=== PATIENT | female | born 1990 | race Two or more races ===

== ENCOUNTER 2022-08-12 22:17 | Inpatient (IN) | payer SELFPAY ==
[~2022-08-12] VITALS: Ht 162.6 cm; Wt 87.5 kg
[2022-08-12] MEDS ORDERED: DOCU-94 PO (22:36)
[2022-08-12] MEDS ORDERED: PREN-96 PO (22:37)
== END 2022-08-13 01:10 | disposition home or self-care (01) | DRG 833 ==
LOC: LDRP 22:17
PROVIDERS: ADMIT Obstetrics & Gynecology; ATTEND Obstetrics & Gynecology
DX: O26.93 Pregnancy related conditions, unspecified, third trimester (principal); Z3A.36 36 weeks gestation of pregnancy
CPT/HCPCS: 59025; 76818; 81002; 94760; G0378

== ENCOUNTER 2022-08-27 11:51 | Inpatient (IN) | payer BC ==
[~2022-08-27] VITALS: Ht 162.6 cm; Wt 88.5 kg
[~2022-08-27 11:51] MED LIST: DOCU-94 PO; PREN-96 PO
[2022-08-27 14:08] LABS: Basophils # (auto) 0 10 ^3/uL (0-0.2); Basophils % (auto) 0.3 % (0.0-2.0); Eosinophils # (auto) 0 10 ^3/uL (0-0.8); Eosinophils % (auto) 0.4 % (0.0-7.0); Hematocrit 38.4 % (36.0-46.0); Hemoglobin 12.9 g/dL (12.2-16.2); Lymphocytes # (auto) 1.6 10 ^3/uL (0.4-5.4); Lymphocytes % (auto) 25.4 % (10.0-50.0); Mean Corpuscular Hemoglobin 29.4 pg (28.0-32.0); Mean Corpuscular Hgb Conc. 33.6 g/dL (32.0-36.0); Mean Corpuscular Volume 87.4 fL (80.0-100.0); Monocytes # (auto) 0.4 10 ^3/uL (0-1.3); Monocytes % (auto) 6.8 % (0.0-12.0); Neutrophils # (auto) 4.3 10 ^3/uL (1.6-8.6); Neutrophils % (auto) 67.1 % (37.0-80.0); Red Blood Cells 4.39 10^6/uL (4.0-5.20); Red Cell Distribution Width 13.9 % (11.8-14.3); White Blood Cell 6.4 10^3/uL (4.4-10.8)
[2022-08-27 14:31] LABS: Urine Bacteria MANY /hpf (None Seen); Urine Blood Negative /uL (Negative); Urine Mucus FEW (None Seen); Urine Specific Gravity 1.019 (1.001-1.035); Urine WBC 7 /hpf (0 - 5)
[2022-08-27 14:34] LABS: INR 0.87 (0.9-1.15); Partial Thromboplastin Time 29.2 sec (24.6-33.4)
[2022-08-27 14:52] LABS: BUN/Creatinine Ratio 16.9; Calcium 7.8 mg/dL (8.5-10.1); Potassium 3.5 mmol/L (3.5-5.1)
[2022-08-27 14:54] LABS: Bilirubin, Total 0.4 mg/dL (0.2-1.0)
[2022-08-27] MEDS ORDERED: PROMETHAZINE HCL 25 MG/ML 1ML IM PRN (15:30)
[2022-08-27] MEDS ORDERED: PHISODERM TOP SOLN 240ML BTL TOP PRN (15:30)
[2022-08-27] MEDS ORDERED: BUTORPHANOL TARTRATE 2 MG/1 ML VIAL IV PRN ×2 (15:30)
[2022-08-27] MEDS ORDERED: LIDOCAINE 2%HCL (LOCAL ANESTH.) INJ 20ML MDV IJ PRN (15:30)
[2022-08-27] MEDS ORDERED: LACTATED RINGER'S 1,000 ML IV SCH (15:30)
[2022-08-27] MEDS ORDERED: LACT. RINGERS/OXYTOCIN 20UNITS 500 ML IV ONE ×2 (16:00→16:30)
[2022-08-27] MEDS: miSOPROStol 50 MCG per PRE-CUT 1/2 TAB PO PRN ×2 (16:11→20:13)
[2022-08-27 16:53] LABS: Uric Acid 9.2 mg/dL (2.6-6.0)
[2022-08-27] MEDS: WITCH HAZEL-GLYCERIN PAD TOP PRN (17:54)
[2022-08-27] MEDS: DERMOPLAST 60ML BOTTLE TOP PRN (17:54)
[2022-08-27] MEDS ORDERED: hydrALAZINE HCL 20 MG/ML VL IV PRN (19:15)
[2022-08-27] MEDS: LABETALOL HCL 200 MG TAB PO SCH (19:23)
[2022-08-28] VITALS (11 sets, daily range): BP systolic 133–158; BP diastolic 73–92
[2022-08-28] MEDS: miSOPROStol 50 MCG per PRE-CUT 1/2 TAB PO PRN ×2 (00:16→04:48)
[2022-08-28] MEDS ORDERED: LACTATED RINGER'S 1,000 ML IV SCH (05:45)
[2022-08-28] MEDS ORDERED: MAGNESIUM SULFATE 100 ML IV ONE ×2 (05:45→05:47)
[2022-08-28] MEDS ORDERED: LORazepam 2MG/ML-1ML VIAL IV ONE ×2 (05:45→16:00)
[2022-08-28] MEDS ORDERED: MAGNESIUM SULFATE 40MG/ML 1,000 ML IV SCH ×2 (05:45→15:45)
[2022-08-28] MEDS: LABETALOL HCL 200 MG TAB PO SCH ×2 (06:42→18:34)
[2022-08-28] MEDS ORDERED: LACTATED RINGER'S 500 ML IV ONE (07:15)
[2022-08-28] MEDS ORDERED: LIDOCAINE HCL 2 %PF INJ 10ML AMP IJ ONE (07:15)
[2022-08-28] MEDS ORDERED: ePHEDrine SULFATE 50 MG/ML AMP IV ONE (07:15)
[2022-08-28] MEDS ORDERED: ROPIVACAINE HCL 200 ML EPI SCH (07:15)
[2022-08-28] MEDS ORDERED: miSOPROStol 100 mcg TAB SL PRN (09:45)
[2022-08-28] MEDS ORDERED: IBUPROFEN 600 MG TAB PO PRN (11:15)
[2022-08-28] MEDS: DERMOPLAST 60ML BOTTLE TOP PRN (17:23)
[2022-08-28] MEDS: WITCH HAZEL-GLYCERIN PAD TOP PRN (17:23)
[2022-08-28 18:23] LABS: Protein, Urine 87.5 mg/dL (0.0-11.9)
[2022-08-28] MEDS: DOCUSATE SOD 100 MG CAP PO SCH (22:20)
[2022-08-28] MEDS: IBUPROFEN 800 MG TAB PO PRN (22:21)
[2022-08-29 03:00] VITALS: BP 139/79
[2022-08-29] MEDS: ACETAMINOPHEN 325 MG TAB PO PRN ×3 (05:46→22:20)
[2022-08-29 06:30] VITALS: BP 131/84
[2022-08-29] MEDS ORDERED: MAGNESIUM SULFATE 40MG/ML 1,000 ML IV SCH (07:00)
[2022-08-29 07:06] LABS: RPR Non Reactive (Non Reactive)
[2022-08-29] MEDS: IBUPROFEN 800 MG TAB PO PRN ×2 (07:10→15:27)
[2022-08-29] MEDS: LABETALOL HCL 200 MG TAB PO SCH ×2 (07:13→19:00)
[2022-08-29 11:00] VITALS: BP 144/93
[2022-08-29 15:00] VITALS: BP 144/83
[2022-08-29 19:00] VITALS: BP 143/89
[2022-08-29] MEDS: DOCUSATE SOD 100 MG CAP PO SCH (22:20)
[2022-08-29 23:00] VITALS: BP 136/69
[2022-08-30] MEDS: IBUPROFEN 800 MG TAB PO PRN (01:16)
[2022-08-30 03:00] VITALS: BP 138/73
[2022-08-30] MEDS: LABETALOL HCL 200 MG TAB PO SCH (06:47)
[2022-08-30 06:50] VITALS: BP 164/89
[2022-08-30] MEDS ORDERED: LABE100T4 PO (07:26)
== END 2022-08-30 10:05 | disposition home or self-care (01) | DRG 807 ==
LOC: LDRP 11:51 → OBSVTOIN 14:30 → LDRP 14:36
PROVIDERS: ADMIT Obstetrics & Gynecology; ATTEND Obstetrics & Gynecology
PROC: 10E0XZZ Delivery of Products of Conception, External Approach (ICD-10-PCS; principal; 2022-08-28)
PROC: 0KQM0ZZ Repair Perineum Muscle, Open Approach (ICD-10-PCS; 2022-08-28)
PROC: 3E0R3BZ Introduction of Anesthetic Agent into Spinal Canal, Percutaneous Approach (ICD-10-PCS; 2022-08-28)
PROC: 00HU33Z Insertion of Infusion Device into Spinal Canal, Percutaneous Approach (ICD-10-PCS; 2022-08-28)
DX: O69.81X0 Labor and delivery complicated by cord around neck, without compression, not applicable or unspecified (principal); Z37.0 Single live birth; O14.94 Unspecified pre-eclampsia, complicating childbirth; Z3A.39 39 weeks gestation of pregnancy; Z20.822 Contact with and (suspected) exposure to COVID-19; O70.1 Second degree perineal laceration during delivery; O13.4 Gestational [pregnancy-induced] hypertension without significant proteinuria, complicating childbirth
CPT/HCPCS: 36415; 59025; 62282; 80053; 81001; 81002; 82570; 83735; 84156; 84550; 85025; 85610; 85730; 86592; 86850; 86900; 86901; 87426; 94760; 96360; 96361; 96365; 96366; 96374; 96375; G0378; J2590

== ENCOUNTER 2025-06-14 21:47 | Emergency (ER) | payer BC ==
[~2025-06-14] VITALS: Ht 162.6 cm; Wt 88.0 kg
[~2025-06-14 21:47] MED LIST changes: +LABE100T7 PO
[2025-06-14 22:04] VITALS: BP 141/83; PULSE 90; RESP 18; TEMP 98; O2SAT 98
[2025-06-14] MEDS ORDERED: LORA-622 PO (22:21)
[2025-06-14] MEDS ORDERED: PRED20TA2 PO (22:21)
[2025-06-14] MEDS ORDERED: CLIN1CAP70 PO (22:21)
--- NOTE | 2025-06-14 22:22 | ED.PDOC ---
History of Present Illness(SKN HPI Comments 35-year-old female presents to ER with complaints of insect bite x1 day. Patient reports that she has been experiencing redness/itchiness/swelling localized to site of mosquito bite on right leg x1 day. Denies any current pain and reports that she has been taking Benadryl without relief. Patient presents to ER ambulatory on arrival, with steady gait, in no distress. Denies fever, body aches, chills, calf pain or any further symptoms/complaints Chief Complaint: Insect Bite Time Seen by MD: 22:11 Primary Care Provider: UNKNOWN History of Present Illness: Nurses Notes, Medications, Allergies Allergies: Coded Allergies: NO KNOWN ALLERGIES (Unverified , 08/12/22) Home Meds Active Scripts Loratadine (Claritin) 10 Mg Tab, 1 TAB PO DAILY PRN, #30 TAB 0 Refills Prov:ROOSEVELT HAQUE 06/14/25 Prednisone (Prednisone) 20 Mg Tab, 20 MG PO BID for 5 Days, #10 TAB 0 Refills Prov:ROOSEVELT HAQUE 06/14/25 Clindamycin Hcl (Clindamycin Hcl) 300 Mg Cap, 1 CAP PO TID for 7 Days, #21 CAP 0 Refills Prov:ROOSEVELT HAQUE 06/14/25 Labetalol Hcl (Labetalol Hcl) 100 Mg Tab, 100 MG PO BID for 30 Days, #60 TAB Prov:KAITLYNNSINA DO 08/30/22 Reported Medications Vit W/ Ferrous Fumara ( One Daily) Daily Tab, 1 TAB PO DAILY, #90 TAB 3 Refills 08/12/22 Docusate Sodium (Colace) 100 Mg Cap, 100 MG PO, CAP 08/12/22 Information Source: Patient Mode of Arrival: Ambulatory Past Medical History PAST MEDICAL HISTORY: Denies Surgical History: Denies all surgeries [employer]MER [employer]ER History: No Pertinent TR[employer]MER [employer]ER History Family History Family History: Unknown Social History Smoker: Non-Smoker Alcohol: Denies ETOH Use Drugs: Denies Drug Use Lives In: Home Constitutional: denies: chills, diaphoresis, fatigue, fever, malaise, sweats, weakness, others EENTM: denies: blurred vision, double vision, ear bleeding, ear discharge, ear drainage, ear pain, ear ringing, eye pain, eye redness, hearing loss, mouth pain, mouth swelling, nasal discharge, nose bleeding, nose congestion, nose pain, photophobia, tearing, throat pain, throat swelling, voice changes, others Respiratory: denies: cough, hemoptysis, orthopnea, SOB at rest, shortness of breath, SOB with excertion, stridor, wheezing, others Cardiovascular: denies: chest pain, dizzy spells, diaphoresis, Dyspnea on exertion, edema, irregular heart beat, left arm pain, lightheadedness, palpitations, PND, syncope, others Gastrointestinal: denies: abdomen distended, abdominal pain, blood streaked bowels, constipated, diarrhea, dysphagia, difficulty swallowing, hematemesis, melena, nausea, poor appetite, poor fluid intake, rectal bleeding, rectal pain, vomiting, others Genitourinary: denies: abnormal vagina bleeding, burning, dyspareunia, dysuria, flank pain, frequency, hematuria, incontinence, pain, , vagina discharge, urgency, others Neurological: denies: dizziness, fainting, headache, left sided numbness, left sided weakness, numbness, paresthesia, pre-existing deficit, right sided numbness, right sided weakness, seizure, speech problems, tingling, tremors, weakness, others Musculoskeletal: denies: back pain, gout, joint pain, joint swelling, muscle pain, muscle stiffness, neck pain, others Integumetry: reports: others (As stated in HPI) Allergic/Immunocompromised: reports: others (As stated in HPI) Hematologic/Lymphatic: denies: anemia, blood clots, easy bleeding, easy bruising, swollen glands, others Endocrine: denies: excessive hunger, excessive sweating, excessive thirst, excessive urination, flushing, intolerance to cold, intolerance to heat, unexplained weight gain, unexplained weight loss, others Psychiatric: denies: anxiety, bipolar disorder, depression, hopeless, panic disorder, schizophrenia, sleepless, suicidal, others Physical Exam General Appearance: No Apparent Distress HEENT: PERRL/EOMI Neck: Full Range of Motion, Non-Tender, Normal Respiratory: Chest Non-Tender, Lungs Clear, No Accessory Muscle Use, No Respiratory Distress, Normal Breath Sounds Cardiovascular: No Murmur, No Gallop, Regular Rate/Rhythm Breast Exam: Deferred Gastrointestinal: NOT DONE Genitalia: Deferred Pelvic: Deferred Rectal: Deferred Extremities: No calf tenderness, Normal capillary refill, Normal range of motion Neurologic: Alert, No Motor Deficits, Normal Affect, Normal Mood, No Sensory Deficits Cerebellar Function: Normal Reflexes: Normal Skin: Dry, Warm Lymphatic: No Adenopathy Was a procedure done? Was a procedure done?: No Sedation Sedation?: No Images 1 - Moderate swelling/erythema/increased warmth noted. No fluctuance/drainage/red streaking/induration or calf tenderness appreciated. Pulses intact. Gait intact without abnormality Differential Diagnosis (INTG) Differential Diagnosis: Abrasion Differential Diagnosis: Abscess Abscess: Bacteremia Differential Diagnosis: Retained Foreign Body X-Ray, Labs, Meds, VS Vital Signs Date Time Temp Pulse Resp B/P (MAP) Pulse Ox O2 Delivery O2 Flow Rate FiO2 06/14/25 22:04 98.0 90 18 141/83 98 98.0 Rocephin 1 g IM ordered Solu-Medrol 125 mg IM ordered Claritin 10 mg p.o. ordered Advised to follow up with PCP in 1-2 days Patient verbalized understanding and agreeable with current plan of care Advised to return to ER immediately if symptoms worsen Time of 1ST Reevaluation: 22:04 Reevaluation 1ST: N/A Patient Education/Counseling: Diagnosis, Treatment, Prognosis, Need For Follow Up Family Education/Counseling: No Family Present SEPSIS Sepsis Screen Date sepsis recognized/suspect: Jun 14, 2025 Time Sepsis recognized/suspect: 2208 Recent Procedure: No On Antibiotic Therapy: No Respiratory Rate >20: No Heart Rate >90: No Temp<36 C (96.8 F) or >38.3 C: No SBP <90 or MAP <65 mmHG: No New Acute Mental Status Change: No Is the patient on CPAP, BIPAP,: No Vital Signs Date Time Temp Pulse Resp B/P (MAP) Pulse Ox O2 Delivery O2 Flow Rate FiO2 06/14/25 22:04 98.0 90 18 141/83 98 98.0 Departure 1 Departure Time of Disposition: 22:19 Impression: Primary Impression: Cellulitis of right leg Additional Impression: Insect bite of leg, right Qualified Codes: S80.861A - Insect bite (nonvenomous), right lower leg, initial encounter; W57.XXXA - Bitten or stung by nonvenomous insect and other nonvenomous arthropods, initial encounter Disposition: HOME / SELF CARE / HOMELESS Condition: Stable e-Prescriptions Loratadine (Claritin) 10 Mg Tab 1 TAB PO DAILY PRN, #30 TAB 0 Refills Prov: ROOSEVELT HAQUE 06/14/25 Prednisone (Prednisone) 20 Mg Tab 20 MG PO BID for 5 Days, #10 TAB 0 Refills Prov: ROOSEVELT HAQUE 06/14/25 Clindamycin Hcl (Clindamycin Hcl) 300 Mg Cap 1 CAP PO TID for 7 Days, #21 CAP 0 Refills Prov: ROOSEVELT HAQUE 06/14/25 Discharged With: Self Critical Care Note Critical Care Time?: No Stability Stability form required: No Heart Score Heart Score: Heart Score Response (Comments) Value History N/A 0 EKG N/A 0 Age N/A 0 Risk Factors N/A 0 Troponin N/A 0 Total 0 ROOSEVELT HAQUE Jun 14, 2025 22:22
[2025-06-14] MEDS: LORATADINE 10 MG TAB PO ONE (22:59)
[2025-06-14] MEDS: cefTRIAXone SOD 1,000 MG VL IM ONE (22:59)
[2025-06-14] MEDS: methylPREDNISolone SOD SUCC 125 MG/2 ML VL IM ONE (22:59)
== END 2025-06-14 23:04 | disposition home or self-care (01) ==
LOC: ER 21:47 → EEVIPCON 21:47 → ER 23:04
DX: S80.861A Insect bite (nonvenomous), right lower leg, initial encounter (principal); L03.115 Cellulitis of right lower limb; Z79.899 Other long term (current) drug therapy; Z79.52 Long term (current) use of systemic steroids; W57.XXXA Bitten or stung by nonvenomous insect and other nonvenomous arthropods, initial encounter; Y93.89 Activity, other specified; Y92.89 Other specified places as the place of occurrence of the external cause; Y99.8 Other external cause status
CPT/HCPCS: 96372; 99284; J0696; J2919